=== PATIENT | male | born 1935 | race Two or more races ===

== ENCOUNTER 2021-02-03 10:32 | Inpatient (IN) | payer MEDICAID, OTHER ==
[~2021-02-03] VITALS: Ht 165.1 cm; Wt 62.7 kg
[2021-02-03] MEDS ORDERED: ACCU-CHEK COMFORT CURVE STRIP VI ONE (10:45)
[2021-02-03 11:47] LABS: Basophils # (auto) 0 10 ^3/uL (0-0.2); Basophils % (auto) 0.4 % (0.0-2.0); Eosinophils # (auto) 0 10 ^3/uL (0-0.8); Eosinophils % (auto) 0.8 % (0.0-7.0); Hematocrit 39.7 % (41.0-53.0); Hemoglobin 13.5 g/dL (13.5-17.5); Lymphocytes # (auto) 1.3 10 ^3/uL (0.4-5.4); Lymphocytes % (auto) 21.6 % (10.0-50.0); Mean Corpuscular Hemoglobin 33.5 pg (28.0-32.0); Mean Corpuscular Hgb Conc. 33.9 g/dL (32.0-36.0); Mean Corpuscular Volume 98.7 fL (80.0-100.0); Monocytes # (auto) 0.6 10 ^3/uL (0-1.3); Monocytes % (auto) 9.4 % (0.0-12.0); Neutrophils % (auto) 67.8 % (37.0-80.0); Nucleated Red Blood Cells % 0.1 %; Red Blood Cells 4.03 10^6/uL (4.5-5.90); White Blood Cell 5.9 10^3/uL (4.4-10.8)
[2021-02-03 12:01] LABS: Alanine Aminotransferase 28 U/L (16-61); Albumin 3.8 g/dL (3.4-5.0); Anion Gap 6 (5-15); Aspartate Aminotransferase 22 U/L (15-37); BUN/Creatinine Ratio 19.8; Blood Urea Nitrogen 19 mg/dL (7-18); Calcium 9.1 mg/dL (8.5-10.1); Carbon Dioxide 25 mmol/L (21-32); Chloride 106 mmol/L (98-107); GFR African American 96 mL/min; GFR Non-African American 79 mL/min; Glucose 100 mg/dL (74-106); Potassium 4.2 mmol/L (3.5-5.1); Sodium 137 mmol/L (136-145)
[2021-02-03 12:04] LABS: INR 0.99 (0.9-1.15); Partial Thromboplastin Time 21.8 sec (23.0-31.2)
[2021-02-03 12:05] LABS: Alkaline Phosphatase 98 U/L (45-117); Bilirubin, Total 0.7 mg/dL (0.2-1.0); Total Protein 8.9 g/dL (6.4-8.2)
[2021-02-03] MEDS ORDERED: NITROGLYCERIN 0.4 MG SL TAB SL PRN (14:45)
[2021-02-03] MEDS ORDERED: DEXTROSE (50%) 50ML SYRG IV PRN (14:45)
[2021-02-03] MEDS ORDERED: MORPHINE SULFATE INJECTION 2 MG/ML SYRG IV PRN (14:45)
[2021-02-03] MEDS ORDERED: METF500S PO (16:19)
[2021-02-03 17:00] VITALS: BP 155/74
[2021-02-03] MEDS: InsuLIN REG 1unit/0.01ml Soln (100units/ml) SC SCH ×2 (17:00→22:00)
[2021-02-03] MEDS: ACCU-CHEK COMFORT CURVE STRIP VI SCH ×2 (17:14→22:01)
[2021-02-03] MEDS: ACETAMINOPHEN 500 MG TAB PO PRN (18:55)
[2021-02-03 19:22] LABS: Urine Bacteria NONE SEEN /hpf (None Seen); Urine Blood Negative /uL (Negative); Urine Specific Gravity 1.007 (1.001-1.035); Urine WBC <1 /hpf (0 - 3)
[2021-02-03 20:00] LABS: Amphetamine Screen, Urine NEGATIVE (NEGATIVE); Barbiturate Scree,Urine NEGATIVE (NEGATIVE); Benzodiazephine Screen, Urine NEGATIVE (NEGATIVE); Cannabinoid Screen, Urine NEGATIVE (NEGATIVE); Cocaine Screen, Urine NEGATIVE (NEGATIVE); Opiate Scree,Urine NEGATIVE (NEGATIVE); Phencyclidine Screen, Urine NEGATIVE (NEGATIVE)
[2021-02-03 21:37] VITALS: BP 92/48
[2021-02-03] MEDS: GABAPENTIN 100 MG CAP PO SCH (22:01)
[2021-02-04] VITALS (7 sets, daily range): BP systolic 111–155; BP diastolic 59–85
[2021-02-04] MEDS: InsuLIN REG 1unit/0.01ml Soln (100units/ml) SC SCH ×4 (07:00→21:27)
[2021-02-04] MEDS: ACCU-CHEK COMFORT CURVE STRIP VI SCH ×4 (07:05→21:27)
[2021-02-04] MEDS: ASPirin 81 mg TAB PO SCH (09:20)
[2021-02-04] MEDS: GABAPENTIN 100 MG CAP PO SCH ×2 (09:20→21:28)
[2021-02-04] MEDS ORDERED: [UNRECOGNIZED DRUG - CODE] PO (18:12)
[2021-02-04] MEDS ORDERED: LORazepam 2MG/ML-1ML VIAL IV PRN (20:30)
[2021-02-04 21:28] LABS: Cholesterol 216 mg/dL (< 200)
[2021-02-04] MEDS: ACETAMINOPHEN 500 MG TAB PO PRN (21:28)
[2021-02-04 21:32] LABS: HDL Cholesterol 35 mg/dL (40-59); LDL Cholesterol 147 mg/dL (< 100); Triglycerides 173 mg/dL (< 150)
[2021-02-04] MEDS: ATORVASTATIN 20 MG TAB PO SCH (22:25)
[2021-02-05 05:00] VITALS: BP_SYST 114; BP_SYST 91; BP_SYST 99; BP_DIAS 62; BP_DIAS 64; BP_DIAS 67
[2021-02-05] MEDS: InsuLIN REG 1unit/0.01ml Soln (100units/ml) SC SCH ×4 (06:22→21:30)
[2021-02-05] MEDS: ACCU-CHEK COMFORT CURVE STRIP VI SCH ×4 (06:22→21:28)
[2021-02-05] MEDS: HYDROcodone-ACET 5/325MG TAB PO PRN ×2 (07:14→21:28)
[2021-02-05 09:00] VITALS: BP 106/66
[2021-02-05] MEDS: GABAPENTIN 100 MG CAP PO SCH ×2 (09:37→21:28)
[2021-02-05] MEDS: ASPirin 81 mg TAB PO SCH (09:37)
[2021-02-05 13:00] VITALS: BP 129/70
[2021-02-05 16:44] VITALS: BP 124/65
[2021-02-05] MEDS ORDERED: CYANOCOBALAMIN (B-12) 1000 MCG/1 ML VIAL IM ONE (21:15)
[2021-02-05] MEDS: ATORVASTATIN 20 MG TAB PO SCH (21:28)
[2021-02-05 22:00] VITALS: BP 136/68
[2021-02-05 23:00] VITALS: BP_SYST 105; BP_SYST 133; BP_DIAS 66; BP_DIAS 78
[2021-02-06 05:00] VITALS: BP_SYST 100; BP_SYST 120; BP_SYST 81; BP_DIAS 45; BP_DIAS 55; BP_DIAS 62
[2021-02-06] MEDS: ACCU-CHEK COMFORT CURVE STRIP VI SCH ×2 (06:19→13:43)
[2021-02-06] MEDS: InsuLIN REG 1unit/0.01ml Soln (100units/ml) SC SCH ×2 (06:20→12:00)
[2021-02-06 06:24] LABS: Basophils # (auto) 0 10 ^3/uL (0-0.2); Basophils % (auto) 0.3 % (0.0-2.0); Eosinophils # (auto) 0.1 10 ^3/uL (0-0.8); Eosinophils % (auto) 0.9 % (0.0-7.0); Hematocrit 37.2 % (41.0-53.0); Hemoglobin 12.8 g/dL (13.5-17.5); Lymphocytes # (auto) 1.2 10 ^3/uL (0.4-5.4); Mean Corpuscular Hemoglobin 33.8 pg (28.0-32.0); Mean Corpuscular Hgb Conc. 34.4 g/dL (32.0-36.0); Mean Corpuscular Volume 98.4 fL (80.0-100.0); Monocytes # (auto) 0.6 10 ^3/uL (0-1.3); Monocytes % (auto) 10.1 % (0.0-12.0); Neutrophils # (auto) 4.2 10 ^3/uL (1.6-8.6); Neutrophils % (auto) 68.7 % (37.0-80.0); Nucleated Red Blood Cells % 0.2 %; Red Blood Cells 3.78 10^6/uL (4.5-5.90); Red Cell Distribution Width 14.6 % (11.8-14.3); White Blood Cell 6.2 10^3/uL (4.4-10.8)
[2021-02-06 06:38] LABS: Calcium 8.8 mg/dL (8.5-10.1); Potassium 3.8 mmol/L (3.5-5.1)
[2021-02-06 09:00] VITALS: BP 101/58
[2021-02-06] MEDS: GABAPENTIN 100 MG CAP PO SCH (09:38)
[2021-02-06] MEDS: ASPirin 81 mg TAB PO SCH (09:38)
[2021-02-06] MEDS ORDERED: ATOR20TA50 PO (11:06)
[2021-02-06] MEDS ORDERED: ASPI1CHW15 PO (11:06)
[2021-02-06] MEDS ORDERED: GAB100C PO (11:06)
[2021-02-06 13:00] VITALS: BP 99/57
[2021-02-06 15:06] VITALS: BP 99/57
[2021-02-06 16:43] VITALS: BP 109/64
[2021-02-06] MEDS ORDERED: CYANOCOBALAMIN 500 MCG TAB PO SCH (22:00)
== END 2021-02-06 16:30 | disposition home or self-care (01) | DRG 201 ==
LOC: ER 10:32 → TELE 14:43 → TELE-WESTW 16:16
PROVIDERS: ADMIT Nurse Practitioner Acute Care; ATTEND Internal Medicine Pulmonary Disease
DX: R00.1 Bradycardia, unspecified (principal); E11.40 Type 2 diabetes mellitus with diabetic neuropathy, unspecified; Z20.822 Contact with and (suspected) exposure to COVID-19; I10 Essential (primary) hypertension; F17.200 Nicotine dependence, unspecified, uncomplicated; Z79.82 Long term (current) use of aspirin; Z79.84 Long term (current) use of oral hypoglycemic drugs; Z79.899 Other long term (current) drug therapy; Z86.73 Personal history of transient ischemic attack (TIA), and cerebral infarction without residual deficits
CPT/HCPCS: 36415; 70450; 71045; 80048; 80053; 80061; 80307; 81001; 82607; 82746; 82962; 83036; 83090; 83605; 83880; 84443; 84484; 85025; 85610; 85730; 87040; 87426; 93005; 93017; 93306; 93886; 93925; 95819; G0378